=== PATIENT | female | born 1940 | race Caucasian/White ===

== ENCOUNTER 2017-02-04 08:16 | Day surgery (SDC) | payer MEDICARE, BC ==
[2017-02-04] MEDS ORDERED: PHENYLEPHRINE HCL 10% OPHTHAL SOL ONE ×2 (08:36→08:38)
[2017-02-04 08:47] VITALS: O2SAT 96
[2017-02-04] MEDS: ACETAMINOPHEN 325 MG ONE ×2 (08:48→08:54)
[2017-02-04] MEDS ORDERED: POVIDONE IODINE 5% SOL ONE (08:53)
[2017-02-04] MEDS ORDERED: LIDOCAINE HCL 1% MPF SOL ONE (08:53)
[2017-02-04] MEDS ORDERED: BSS W/ 0.25MG P.F. EPI 1 BOTTLE ONE (08:53)
[2017-02-04] MEDS ORDERED: TRYPAN BLUE 0.5 ML SOL IO ONE (08:53)
[2017-02-04] MEDS: PROPARACAINE HCL 0.5% OPHTHALMIC SOL ONE ×3 (08:55→09:50)
[2017-02-04] MEDS: CYCLOPENTOLATE 1% SOL ONE ×2 (08:56→09:08)
[2017-02-04] MEDS ORDERED: BROMFENAC SODIUM 3 ML DROPS RIGHTEYE ONE ×2 (08:56→09:08)
[2017-02-04] MEDS: BESIFLOXACIN HCL RIGHTEYE ONE ×2 (08:56→10:30)
[2017-02-04] MEDS ORDERED: MIDAZOLAM 2 MG/2 ML SOL ONE (09:07)
[2017-02-04] MEDS ORDERED: FENTANYL CITRATE 50 MCG/ML SOL ONE (09:07)
[2017-02-04] MEDS ORDERED: BESIFLOXACIN HCL RIGHTEYE ONE (09:08)
[2017-02-04] MEDS ORDERED: ACETAZOLAMIDE 500 MG CER ONE (10:13)
[2017-02-04 10:57] VITALS: BP 150/54; PULSE 60; RESP 20; TEMP 97
== END 2017-02-04 11:15 | disposition home or self-care (01) | DRG 125 ==
LOC: SURG 08:16
PROVIDERS: ATTEND Ophthalmology
DX: H25.9 Unspecified age-related cataract (principal); H21.81 Floppy iris syndrome; H57.09 Other anomalies of pupillary function
CPT/HCPCS: J2250; J3010; J2001

== ENCOUNTER 2017-03-04 09:53 | Day surgery (SDC) | payer MEDICARE, BC ==
[2017-03-04] MEDS ORDERED: ACETAMINOPHEN 325 MG ONE (09:58)
[2017-03-04] MEDS: PHENYLEPHRINE HCL 10% OPHTHAL SOL ONE ×2 (10:18→10:31)
[2017-03-04] MEDS: PROPARACAINE HCL 0.5% OPHTHALMIC SOL ONE ×3 (10:18→11:52)
[2017-03-04] MEDS: BROMFENAC SODIUM 3 ML DROPS LEFTEYE ONE ×2 (10:19→10:32)
[2017-03-04] MEDS: CYCLOPENTOLATE 1% SOL ONE ×2 (10:19→10:31)
[2017-03-04] MEDS: BESIFLOXACIN HCL LEFTEYE ONE ×2 (10:19→10:32)
[2017-03-04] MEDS ORDERED: FENTANYL CITRATE 50 MCG/ML SOL ONE (10:58)
[2017-03-04] MEDS ORDERED: MIDAZOLAM 2 MG/2 ML SOL ONE (10:59)
[2017-03-04] MEDS ORDERED: TRYPAN BLUE 0.5 ML SOL IO ONE (11:47)
[2017-03-04] MEDS ORDERED: BSS W/ 0.25MG P.F. EPI 1 BOTTLE ONE (11:47)
[2017-03-04] MEDS ORDERED: LIDOCAINE HCL 1% MPF SOL ONE (11:47)
[2017-03-04] MEDS ORDERED: POVIDONE IODINE 5% SOL ONE (11:47)
[2017-03-04] MEDS ORDERED: BESIFLOXACIN HCL LEFTEYE ONE ×2 (12:10→12:32)
[2017-03-04] MEDS ORDERED: ACETAZOLAMIDE 500 MG CER ONE (12:31)
[2017-03-04 13:09] VITALS: BP 126/60; PULSE 66; RESP 16; TEMP 96.2; O2SAT 93
== END 2017-03-04 13:08 | disposition home or self-care (01) | DRG 125 ==
LOC: SURG 09:53
PROVIDERS: ATTEND Ophthalmology
DX: H25.9 Unspecified age-related cataract (principal); H21.81 Floppy iris syndrome; H57.09 Other anomalies of pupillary function
CPT/HCPCS: J2250; J3010; J2001

== ENCOUNTER 2019-06-24 18:43 | Emergency (ER) | payer MEDICARE, OTHER ==
[2019-06-24 19:16] VITALS: BP 98/53; PULSE 75; RESP 22; TEMP 97.5; O2SAT 96
[2019-06-24 19:56] LABS: BASOPHILS % (AUTO) 0 % (0-3); EOSINOPHILS % (AUTO) 3 % (0-9); HEMATOCRIT 43 % (35-47); LYMPHOCYTES % (AUTO) 14.1 % (10-50); MEAN CORPUSCULAR HEMOGLOBIN 31.1 pg (27.0-32.0); MEAN CORPUSCULAR HGB CONC 30.7 gm/dl (32.0-36.0); MONOCYTES % (AUTO) 7.5 % (0-12); NEUTROPHILS % (AUTO) 75.4 % (37-80)
[2019-06-24 19:57] LABS: MEAN CORPUSCULAR VOLUME 101 fL (81-99)
[2019-06-24 20:05] LABS: CALCIUM 9.4 mg/dl (8.5-10.1); CARBON DIOXIDE 32.5 mEq/L (21-32); CREATININE 0.98 mg/dl (0.60-1.00)
[2019-06-24] MEDS ORDERED: AZITHROMYCIN 250 MG TAB PO ONE (20:44)
[2019-06-24] MEDS ORDERED: AZITHROMYCIN 250 MG TAB ONE (20:50)
== END 2019-06-24 21:13 | disposition home or self-care (01) | DRG 203 ==
LOC: ED 18:43
DX: J20.9 Acute bronchitis, unspecified (principal); R06.02 Shortness of breath; R05 Cough
CPT/HCPCS: 36415; 71046; 80048; 85025; 99282; 99283; A9270-GY